=== PATIENT | male | born 1950 | race Caucasian/White ===

== ENCOUNTER 2019-06-24 07:00 | Day surgery (SDC) | payer MEDICARE ==
[2019-06-21 10:58] VITALS: BMI 36.9
--- NOTE | 2019-06-24 10:05 | OP ---
DATE OF PROCEDURE: 06/24/2019 PROCEDURES PERFORMED: Esophagogastroduodenoscopy with biopsy, colonoscopy with polypectomy. INDICATIONS FOR PROCEDURE: GERD, dysphagia, and personal history of colonic polyps. DESCRIPTION OF PROCEDURE: After the risks and benefits of the procedures were explained to the patient including risks of bleeding, infection, perforation, reactions to anesthesia, aspiration, and/or pain, informed consent was obtained. The patient was then taken to the endoscopy suite, where he was maneuvered into the left lateral decubitus position, followed by introduction of deep sedation via propofol and anesthesia support. Once adequate sedation was achieved, the standard gastroscope was introduced into the mouth with intubation of the esophagus, stomach, and the proximal small intestines with the findings listed below. The patient tolerated this portion of the procedure well with no immediate perioperative complications. Upon conclusion of this portion of the procedure, all equipment was removed from the patient, and the bed was rotated 180 degrees in anticipation of the colonoscopy. After a digital rectal examination was performed, the standard colonoscope was introduced into the rectum and advanced to the terminal ileum without difficulty. The quality of the prep was good to excellent with a minimal amount of liquid stool seen throughout the colon that was amenable to irrigation and suctioning. The patient tolerated the procedure well with no immediate perioperative complications. Upon conclusion of the procedure, all equipment was removed from the patient, and he was transferred to Day Stay in satisfactory condition. FINDINGS: EGD FINDINGS: Esophagus: Normal-appearing mucosa was seen in the proximal and mid esophagus. A slightly irregular Z-line was seen at the gastroesophageal junction at approximately 39 cm past the incisors with a possible mild erosion measuring 1 to 2 mm in length extending proximally from the gastroesophageal junction. There were no other abnormalities, and this erosion did not extend between esophageal folds. There was no evidence of erosions, ulcerations, mass, lesions, or active/recent bleeding. Random biopsies were taken from both the proximal and distal esophagus for evaluation of possible eosinophilic esophagitis. Stomach: Normal-appearing mucosa was seen in the gastric cardia, fundus, body, greater curvature, antrum, and incisura. There were no abnormalities on gastric retroflexion. There was no evidence of erosions, ulcerations, mass, lesions, or active/recent bleeding. Duodenum: Normal-appearing mucosa was seen in both the duodenal bulb and second portion of the duodenum. There was no evidence of erosions, ulcerations, mass, lesions, or active/recent bleeding. IMPRESSION: 1. LA grade A reflux-mediated erosive esophagitis. 2. Otherwise normal upper endoscopy. COLONOSCOPY FINDINGS: Digital rectal exam: Small to medium sized external hemorrhoids were seen on external examination without any evidence of thrombosis or bleeding. Colon findings: Normal-appearing mucosa was seen within the terminal ileum as well as at the appendiceal orifice and ileocecal valve. Normal-appearing mucosa was then seen in the ascending colon; however, a 4 to 5 mm polyp was seen in the ascending colon and completely removed with cold snare polypectomy. It was retrieved and placed in a specimen jar for evaluation. Multiple large and small diverticula were seen throughout the entire colon including the ascending, transverse, descending , and sigmoid colons with an increased concentration of diverticula in the sigmoid colon. There was no associated mucosal erythema or luminal narrowing associated with diverticulosis. Otherwise, normal-appearing mucosa was seen in the distal ascending, transverse, and descending colons. In the proximal sigmoid colon, a 4 mm polyp was seen and completely removed with cold snare polypectomy. It was retrieved and placed in a specimen jar for evaluation. Otherwise, normal-appearing mucosa was then seen in the rectum with small to medium sized internal hemorrhoids seen on rectal retroflexion. IMPRESSION: 1. 4 to 5 mm ascending colon polyp, status post cold snare polypectomy. 2. 4 mm sigmoid colon polyp, status post cold snare polypectomy. 3. Moderate to severe pancolonic diverticulosis. 4. Medium internal and external hemorrhoids (likely contributing to mild anal leakage). RECOMMENDATIONS: 1. We will follow up on the biopsy and polypectomy results with repeat upper endoscopy and colonoscopy depending on pathology report. 2. We would continue PPI daily in light of resolution of acid reflux with administration. 3. We would recommend a higher fiber diet given the presence of diverticulosis and hemorrhoids. 4. We would have the patient follow up in the GI Clinic in 4 to 6 weeks for further management of his dysphagia-type symptoms in addition to follow up on biopsy results. 5. We would continue to adhere to standard acid reflux precautions and avoidance of trigger foods. Job ID: [id number]
[2019-06-24] MEDS ORDERED: Lidocaine 1% PF 5 ML VIAL ONE (10:56)
[2019-06-24] MEDS ORDERED: PROPOFOL 200 MG/20 ML VIAL ONE (10:56)
== END 2019-06-24 10:15 | disposition home or self-care (01) ==
LOC: SDC 07:00
PROVIDERS: ATTEND Internal Medicine
PROC: 0DBK8ZZ Excision of Ascending Colon, Via Natural or Artificial Opening Endoscopic (ICD-10-PCS; principal; 2019-06-24)
PROC: 0DBN8ZZ Excision of Sigmoid Colon, Via Natural or Artificial Opening Endoscopic (ICD-10-PCS; 2019-06-24)
PROC: 0DB58ZX Excision of Esophagus, Via Natural or Artificial Opening Endoscopic, Diagnostic (ICD-10-PCS; 2019-06-24)
DX: D12.2 Benign neoplasm of ascending colon (principal); D12.5 Benign neoplasm of sigmoid colon; K57.30 Diverticulosis of large intestine without perforation or abscess without bleeding; K21.0 Gastro-esophageal reflux disease with esophagitis; K64.8 Other hemorrhoids; K64.4 Residual hemorrhoidal skin tags; E78.00 Pure hypercholesterolemia, unspecified; Z79.82 Long term (current) use of aspirin; Z79.899 Other long term (current) drug therapy; Z86.010 Personal history of colon polyps; Z88.0 Allergy status to penicillin
CPT/HCPCS: 88305; 88312; 88313; J2001; J2704

== ENCOUNTER 2021-02-01 09:52 | Outpatient (CLI) | payer MEDICARE ==
[2021-02-01 15:07] LABS: SARS-CoV-2 NAA Rapid Test Not Detected (NotDetected)
== END 2021-02-01 09:53 | disposition home or self-care (01) ==
LOC: LABBT 09:52
PROVIDERS: ATTEND Family Medicine
DX: Z01.812 Encounter for preprocedural laboratory examination (principal); Z20.822 Contact with and (suspected) exposure to COVID-19
CPT/HCPCS: U0002

== ENCOUNTER 2021-02-04 10:39 | Outpatient (CLI) | payer MEDICARE | END 2021-02-04 10:40 | disposition home or self-care (01) | LOC: RAD 10:40 | PROVIDERS: ATTEND Internal Medicine | DX: R13.10 Dysphagia, unspecified (principal); R63.3 Feeding difficulties; K21.9 Gastro-esophageal reflux disease without esophagitis; R05 Cough | CPT/HCPCS: 74230 ==

== ENCOUNTER 2021-06-17 12:25 | Outpatient (CLI) | payer MEDICARE | END 2021-06-17 12:26 | disposition home or self-care (01) | LOC: BICULT 12:25 | PROVIDERS: ATTEND Internal Medicine Nephrology | DX: N28.1 Cyst of kidney, acquired (principal) | CPT/HCPCS: 76770 ==

== ENCOUNTER 2022-04-25 09:47 | Outpatient (CLI) | payer MEDICARE | END 2022-04-25 09:48 | disposition home or self-care (01) | LOC: BICULT 09:47 | PROVIDERS: ATTEND Internal Medicine Nephrology | DX: N28.1 Cyst of kidney, acquired (principal) | CPT/HCPCS: 76770 ==

== ENCOUNTER 2022-07-04 10:17 | Outpatient (CLI) | payer MEDICARE ==
[2022-07-04] MEDS ORDERED: Iopamidol-370 76% 500 ML 1 ML ONE (10:28)
== END 2022-07-04 10:18 | disposition home or self-care (01) ==
LOC: BICCT 10:17
PROVIDERS: ATTEND Internal Medicine Nephrology
DX: N28.1 Cyst of kidney, acquired (principal)
CPT/HCPCS: 74170; 82565; Q9967